=== PATIENT | male | born 1970 | race Caucasian/White ===

== ENCOUNTER 2020-10-18 10:51 | Emergency (ER) | payer OTHER ==
[~2020-10-18] VITALS: Ht 182.9 cm; Wt 93.0 kg
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
[2020-10-18] MEDS ORDERED: RABIES IMMUNE GLOBULIN/PF 300 UNITS/ML,1ML IM ONE (12:30)
[2020-10-18] MEDS ORDERED: RABIES VACCINE /PF 2.5 UNITS IM-VACC ONE (12:30)
[2020-10-18 13:36] VITALS: BP 107/57
== END 2020-10-18 14:01 | disposition home or self-care (01) ==
LOC: ED 11:36
DX: S61.551A Open bite of right wrist, initial encounter (principal); S71.151A Open bite, right thigh, initial encounter; S61.251A Open bite of left index finger without damage to nail, initial encounter; Z23 Encounter for immunization; Z88.0 Allergy status to penicillin; W55.01XA Bitten by cat, initial encounter; Y93.89 Activity, other specified; Y92.89 Other specified places as the place of occurrence of the external cause; Y99.8 Other external cause status
CPT/HCPCS: 90375; 90471; 90675; 96372; 99284

== ENCOUNTER 2020-10-21 16:19 | Emergency (ER) | payer OTHER ==
[~2020-10-21] VITALS: Ht 182.9 cm; Wt 93.3 kg
[2020-10-21] MEDS ORDERED: RABIES VACCINE /PF 2.5 UNITS IM-VACC ONE (17:05)
--- NOTE | 2020-10-21 17:11 | NUR ---
MED REQUEST TO PHARMACY FOR RABIES VACCINE.
--- NOTE | 2020-10-21 17:30 | NUR ---
RABIES VACCINE GIVEN. REASSESS IN 30 MINUTES.
--- NOTE | 2020-10-21 17:58 | NUR ---
THIS FLOAT RN AT BEDSIDE TO DC PT FOR PRIMARY RN, SERENA. PT VERBALIZED UNDERSTANDING TO INSTRUCTIONS. AMUBLATORY TO CHECKOUT C STEADY GAIT.
[2020-10-21 17:59] VITALS: BP 130/90
== END 2020-10-21 18:01 | disposition home or self-care (01) ==
LOC: ED 17:29
DX: S41.152D Open bite of left upper arm, subsequent encounter (principal); S41.151D Open bite of right upper arm, subsequent encounter; W55.01XD Bitten by cat, subsequent encounter
CPT/HCPCS: 90471; 90675; 99281

== ENCOUNTER 2020-10-25 17:34 | Emergency (ER) | payer OTHER ==
[~2020-10-25] VITALS: Ht 182.9 cm; Wt 93.3 kg
[2020-10-25 18:42] VITALS: BP 135/88
[2020-10-25] MEDS ORDERED: RABIES VACCINE /PF 2.5 UNITS IM-VACC ONE (19:00)
== END 2020-10-25 19:21 | disposition home or self-care (01) ==
LOC: ED 19:10
DX: Z23 Encounter for immunization (principal); Z88.0 Allergy status to penicillin
CPT/HCPCS: 90471; 90675; 99281; 99283

== ENCOUNTER 2020-11-01 16:33 | Emergency (ER) | payer OTHER ==
[~2020-11-01] VITALS: Ht 182.9 cm; Wt 93.1 kg
[2020-11-01 16:45] VITALS: BP 132/83
[2020-11-01] MEDS ORDERED: RABIES VACCINE /PF 2.5 UNITS IM-VACC ONE (18:00)
--- NOTE | 2020-11-01 18:17 | NUR ---
Patient given discharge instructions and they have confirmed that they understand the instructions. Patient ambulatory with steady gait.
== END 2020-11-01 18:19 | disposition home or self-care (01) ==
LOC: ED 17:00
DX: Z23 Encounter for immunization (principal)
CPT/HCPCS: 90471; 90675; 99281